=== PATIENT | male | born 1965 | race Caucasian/White ===

== ENCOUNTER 2023-05-04 22:33 | Inpatient (IN) | payer BC ==
[~2023-05-04] VITALS: Ht 172.7 cm; Wt 74.8 kg
[2023-05-05 01:39] VITALS: BP 123/74; PULSE 72; RESP 18; TEMP 99.7
[2023-05-05 04:00] VITALS: BP 101/59; PULSE 63; RESP 18; TEMP 96.4
[2023-05-05 08:00] VITALS: BP 101/60; PULSE 72; RESP 20; TEMP 97.5
[2023-05-05] MEDS ORDERED: LORAZEPAM 2MG/ML CPJ IV NR (10:30)
[2023-05-05] MEDS ORDERED: ONDANSETRON HCL 4MG/2ML INJ IV PRN (10:45)
[2023-05-05] MEDS ORDERED: ACETAMINOPHEN 325MG TABLET PO PRN ×2 (10:45)
[2023-05-05] MEDS ORDERED: DEXTROSE 50% WATER 50ML SYRINGE IV PRN (10:45)
[2023-05-05] MEDS ORDERED: DOCUSATE SODIUM 100MG CAPSULE PO PRN (10:45)
[2023-05-05] MEDS ORDERED: IPRATROPIUM/ALBUTEROL 0.5-3(2.5)MG/3ML NEB HHN PRN (10:45)
[2023-05-05 12:00] VITALS: BP 115/67; PULSE 70; RESP 20; TEMP 96.8
[2023-05-05] MEDS: BLOOD SUGAR DIAGNOSTIC STRIP TEST SCH ×3 (12:20→20:11)
[2023-05-05] MEDS: PREDNISONE 20MG TABLET PO SCH (12:25)
[2023-05-05 12:44] LABS: BASOPHILS % 0.5 % (0.0-2.0); CHLORIDE 106 mEq/L (98-107); EOSINOPHILS % 0.3 % (0.0-5.0); HEMATOCRIT. 44.5 % (42.0-52.0); INDEX HEMOLYSI 1 (1-3); INDEX HEMOLYSI 2 (1-3); INDEX ICTERIC 1 (1-4); INDEX LIPEMIC 1 (1-3); LYMPHOCYTES % 14.9 % (20.0-50.0); MEAN CORPUSCULAR HEMOGLOBIN 29.2 pg (28.0-32.0); MEAN CORPUSCULAR HGB CONC 33.7 g/dL (31.0-37.0); MEAN CORPUSCULAR VOLUME 86.7 fL (80.0-94.0); MONOCYTES % 7.3 % (2.0-8.0); RED BLOOD CELL COUNT 5.13 mill/uL (4.7-6.1); RED CELL DISTRIBUTION WIDTH 13.5 % (11.6-14.6); SODIUM 138 mEq/L (136-145); WHITE BLOOD COUNT 15.1 x1000/uL (4.5-11.0)
[2023-05-05] MEDS: LEVOTHYROXINE SODIUM 50MCG TABLET PO SCH (12:45)
[2023-05-05 12:48] LABS: D-DIMER 3.08 mg/L FEU (<0.50); INR 1.1; PROTHROMBIN TIME 11.9 sec (9.6-11.0)
[2023-05-05 12:51] LABS: ALANINE AMINOTRANSFERASE 126 IU/L (13-61); ALBUMIN 3.1 g/dL (3.4-5.0); ASPARTATE AMINOTRANSFERASE 32 IU/L (15-37); BILIRUBIN TOTAL 0.7 mg/dL (0.1-1.0); CALCIUM 9.1 mg/dL (8.5-10.1); CARBON DIOXIDE 29 mEq/L (21-32); CREATINE KINASE 34 IU/L (39-308); CREATINE KINASE MB FRACTION < 1.0 ng/mL (0.5-3.6); CREATININE 0.7 mg/dL (0.6-1.3); GLUCOSE 93 mg/dL (70-105); PROTEIN TOTAL 7.8 g/dL (6.0-8.3); UREA NITROGEN BLOOD 26 mg/dL (7-21)
[2023-05-05 12:58] LABS: DIFFERENTIAL COMMENT 1
[2023-05-05 13:07] LABS: TROPONIN I HIGH SENSITIVITY < 4 ng/L (<78)
[2023-05-05 13:23] LABS: FOLIC ACID (FOLATE) SERUM 4.9 ng/mL (>5.38)
[2023-05-05 13:51] LABS: PLATELET 532 x1000/uL (130-400)
[2023-05-05] MEDS ORDERED: GADOTERATE MEGLUMINE 5 MMOL/10 ML VIAL IV ONE (15:36)
[2023-05-05 15:58] LABS: INDEX HEMOLYSI 2 (1-3); INDEX ICTERIC 1 (1-4); INDEX LIPEMIC 1 (1-3)
[2023-05-05 16:07] LABS: IRON 63 ug/dL (50-175); NT PRO B-TYPE NATRIURETIC PEP 138 pg/mL (5-125); TOTAL IRON BINDING CAPACITY 338 ug/dL (250-450)
[2023-05-05 16:27] LABS: CLARITY URINE CLEAR (CLEAR); COLOR URINE YELLOW (YELLOW); GLUCOSE URINE NEGATIVE (NEGATIVE); KETONES URINE NEGATIVE (NEGATIVE); LEUKOCYTE ESTERASE URINE NEGATIVE (NEGATIVE); NITRITE URINE NEGATIVE (NEGATIVE); OCCULT BLOOD URINE NEGATIVE (NEGATIVE); PROTEIN URINE TRACE (NEGATIVE); SPECIFIC GRAVITY URINE 1.017 (1.005-1.030)
[2023-05-05 16:58] LABS: *AMPHETAMINES SCREEN URINE NEGATIVE (NEGATIVE); *BARBITURATES SCREEN URINE NEGATIVE (NEGATIVE); *BENZODIAZEPINES SCREEN URINE NEGATIVE (NEGATIVE); *COCAINE SCREEN URINE NEGATIVE (NEGATIVE); CANNABINOID URINE SCREEN NEGATIVE (NEGATIVE); ECSTASY MDMA SCREEN URINE NEGATIVE (NEGATIVE); METHADONE URINE SCREEN NEGATIVE (NEGATIVE); OPIATES URINE SCREEN NEGATIVE (NEGATIVE); PHENCYCLIDINE URINE SCREEN NEGATIVE (NEGATIVE)
[2023-05-05 17:37] LABS: BACTERIA URINE TRACE; RBC URINE NONE SEEN /hpf (0-2); SQUAMOUS EPITHELIAL CELL URINE FEW /lpf (RARE/1+); WBC URINE 0-2 /hpf (0-2)
[2023-05-05] MEDS: SODIUM CHLORIDE 0.9% 1,000 ML IV SCH (17:37)
[2023-05-05] MEDS ORDERED: VANCOMYCIN 1500MG in DEXTROSE 5% WATER 250ML IV NR (19:00)
[2023-05-05] MEDS: CEFEPIME 1,000 MG in DEXTROSE 5% WATER 50 ML IV SCH (19:50)
[2023-05-05 20:00] VITALS: BP 104/65; PULSE 79; RESP 20; TEMP 96.5
[2023-05-05] MEDS: FAMOTIDINE 20MG TABLET PO SCH (20:36)
[2023-05-05] MEDS ORDERED: CEFEPIME HCL 1000MG/VIAL INJ IM SCH (21:00)
[2023-05-05 23:59] LABS: INDEX HEMOLYSI 1 (1-3)
[2023-05-06] VITALS (37 sets, daily range): BP systolic 98–135; BP diastolic 65–94; PULSE 65–88; RESP 10–20; TEMP 96.4–98.8
[2023-05-06 00:07] LABS: CREATINE KINASE 28 IU/L (39-308); CREATINE KINASE MB FRACTION < 1.0 ng/mL (0.5-3.6)
[2023-05-06 00:10] LABS: TROPONIN I HIGH SENSITIVITY < 4 ng/L (<78)
[2023-05-06] MEDS: SODIUM CHLORIDE 0.9% 1,000 ML IV SCH (04:10)
[2023-05-06] MEDS ORDERED: VANCOMYCIN 1G PREMIX 200 ML IV SCH (06:00)
[2023-05-06] MEDS ORDERED: GENTAMICIN SULF 40MG/ML 2ML VIAL ONE (06:21)
[2023-05-06] MEDS ORDERED: LIDOCAINE HCL 1%/EPI 1:200,000 30 ML VIAL ONE (06:21)
[2023-05-06] MEDS ORDERED: THROMBIN (BOVINE) 5000 UNITS/VIAL TOP ONE (06:22)
[2023-05-06] MEDS: LEVOTHYROXINE SODIUM 50MCG TABLET PO SCH (07:20)
[2023-05-06] MEDS ORDERED: HYDROMORPHONE HCL/PF 2MG/ML CPJ ONE (07:28)
[2023-05-06] MEDS ORDERED: PROPOFOL 200MG/20ML VIAL IV ONE (07:29)
[2023-05-06] MEDS ORDERED: ROCURONIUM BROMIDE 10MG/ML VIAL 5ML IV ONE ×3 (07:29→09:02)
[2023-05-06] MEDS: CEFEPIME 1,000 MG in DEXTROSE 5% WATER 50 ML IV SCH ×2 (08:00→21:28)
[2023-05-06] MEDS ORDERED: GLYCOPYRROLATE 0.2 MG/ML 2ML VIAL ONE ×3 (08:06→10:22)
[2023-05-06 08:09] LABS: HEMATOCRIT 40.1 % (42.0-52.0); HEMOGLOBIN 13.8 g/dL (14.0-18.0); MEAN CORPUSCULAR HEMOGLOBIN 29.4 pg (28.0-32.0); MEAN CORPUSCULAR HGB CONC 34.4 g/dL (31.0-37.0); MEAN CORPUSCULAR VOLUME 85.6 fL (80.0-94.0); PLATELET 507 x1000/uL (130-400); RED BLOOD CELL COUNT 4.69 mill/uL (4.7-6.1); RED CELL DISTRIBUTION WIDTH 13.2 % (11.6-14.6); WHITE BLOOD COUNT 12.3 x1000/uL (4.5-11.0)
[2023-05-06] MEDS: FAMOTIDINE 20MG TABLET PO SCH ×2 (09:00→21:28)
[2023-05-06] MEDS ORDERED: NEOSTIGMINE METHYLSULFATE 1MG/ML 10 ML VIAL ONE (10:22)
[2023-05-06] MEDS ORDERED: NICARDIPINE 100 MG in SODIUM CHLORIDE 0.9% 60 ML IV PRN (11:00)
[2023-05-06] MEDS ORDERED: NALOXONE HCL 0.4MG/ML VIAL IV PRN (11:45)
[2023-05-06 12:01] LABS: CHLORIDE 106 mEq/L (98-107); INDEX HEMOLYSI 1 (1-3); INDEX ICTERIC 1 (1-4); INDEX LIPEMIC 1 (1-3); POTASSIUM 4.1 mEq/L (3.5-5.1); SODIUM 137 mEq/L (136-145)
[2023-05-06 12:07] LABS: ALANINE AMINOTRANSFERASE 87 IU/L (13-61); ALBUMIN 2.8 g/dL (3.4-5.0); ASPARTATE AMINOTRANSFERASE 20 IU/L (15-37); BILIRUBIN TOTAL 0.6 mg/dL (0.1-1.0); CALCIUM 8.4 mg/dL (8.5-10.1); CARBON DIOXIDE 26 mEq/L (21-32); CREATININE 0.8 mg/dL (0.6-1.3); GLUCOSE 91 mg/dL (70-105); PHOSPHORUS 3.2 mg/dL (2.5-4.9); PROTEIN TOTAL 7.3 g/dL (6.0-8.3); UREA NITROGEN BLOOD 23 mg/dL (7-21)
[2023-05-06] MEDS: BLOOD SUGAR DIAGNOSTIC STRIP TEST SCH ×3 (12:18→21:29)
[2023-05-06] MEDS: DEXT 5%/LACTATED RINGERS 1,000 ML IV SCH ×2 (12:29→21:29)
[2023-05-06] MEDS: DEXAMETHASONE 4MG/ML 1ML VIAL IV SCH ×3 (12:48→23:58)
[2023-05-06] MEDS: VANCOMYCIN 750MG PREMIX 150 ML IV SCH ×2 (16:00→23:58)
[2023-05-06] MEDS: MORPHINE SULFATE 4 MG/ML CPJ (NOT FOR IM USE) IV PRN ×2 (17:59→23:58)
[2023-05-06] MEDS ORDERED: HYDR-459 MT (18:24)
[2023-05-06] MEDS ORDERED: CITA40TA69 MT (18:24)
[2023-05-06] MEDS ORDERED: LEVO50TA8 PO (18:24)
[2023-05-06] MEDS ORDERED: HYDR-4001 MT (18:24)
[2023-05-06] MEDS ORDERED: METH-774 MT (18:24)
[2023-05-06] MEDS ORDERED: LORA-250 MT (18:24)
[2023-05-06] MEDS ORDERED: IBUP-2028 MT (18:24)
[2023-05-06] MEDS ORDERED: CITALOPRAM HYDROBROMIDE 10MG TABLET PO SCH (20:00)
[2023-05-07] VITALS (41 sets, daily range): BP systolic 109–131; BP diastolic 69–97; PULSE 59–87; RESP 9–22; TEMP 98.1–98.8
[2023-05-07 04:43] LABS: HEMATOCRIT 41.9 % (42.0-52.0); HEMOGLOBIN 13.9 g/dL (14.0-18.0); MEAN CORPUSCULAR HEMOGLOBIN 29.1 pg (28.0-32.0); MEAN CORPUSCULAR HGB CONC 33.1 g/dL (31.0-37.0); MEAN CORPUSCULAR VOLUME 87.8 fL (80.0-94.0); PLATELET 530 x1000/uL (130-400); RED BLOOD CELL COUNT 4.78 mill/uL (4.7-6.1); RED CELL DISTRIBUTION WIDTH 13.5 % (11.6-14.6); WHITE BLOOD COUNT 20.1 x1000/uL (4.5-11.0)
[2023-05-07 05:17] LABS: CHLORIDE 102 mEq/L (98-107); INDEX HEMOLYSI 2 (1-3); INDEX ICTERIC 1 (1-4); INDEX LIPEMIC 1 (1-3); POTASSIUM 4.5 mEq/L (3.5-5.1); SODIUM 135 mEq/L (136-145)
[2023-05-07 05:28] LABS: ALANINE AMINOTRANSFERASE 63 IU/L (13-61); ALBUMIN 2.8 g/dL (3.4-5.0); ASPARTATE AMINOTRANSFERASE 20 IU/L (15-37); BILIRUBIN TOTAL 0.9 mg/dL (0.1-1.0); CALCIUM 8.9 mg/dL (8.5-10.1); CARBON DIOXIDE 23 mEq/L (21-32); CREATININE 0.7 mg/dL (0.6-1.3); GLUCOSE 288 mg/dL (70-105); PHOSPHORUS 3.8 mg/dL (2.5-4.9); PROTEIN TOTAL 7.1 g/dL (6.0-8.3); UREA NITROGEN BLOOD 19 mg/dL (7-21)
[2023-05-07] MEDS ORDERED: LEVOTHYROXINE SODIUM 50MCG TABLET PO SCH (06:30)
[2023-05-07] MEDS: BLOOD SUGAR DIAGNOSTIC STRIP TEST SCH ×3 (06:38→21:00)
[2023-05-07] MEDS: LEVOTHYROXINE SODIUM 50MCG TABLET PO SCH (06:41)
[2023-05-07] MEDS: DEXAMETHASONE 4MG/ML 1ML VIAL IV SCH ×3 (06:41→18:14)
[2023-05-07] MEDS: MORPHINE SULFATE 4 MG/ML CPJ (NOT FOR IM USE) IV PRN ×3 (06:41→17:03)
[2023-05-07] MEDS: DEXT 5%/LACTATED RINGERS 1,000 ML IV SCH ×2 (07:00→22:44)
[2023-05-07] MEDS: VANCOMYCIN 750MG PREMIX 150 ML IV SCH (08:00)
[2023-05-07] MEDS: FAMOTIDINE 20MG TABLET PO SCH ×2 (09:06→21:10)
[2023-05-07] MEDS: CEFEPIME 1,000 MG in DEXTROSE 5% WATER 50 ML IV SCH (09:06)
[2023-05-07] MEDS ORDERED: BISACODYL 5MG TABLET PO PRN (12:45)
[2023-05-07] MEDS: CITALOPRAM HYDROBROMIDE 10MG TABLET PO SCH (19:54)
[2023-05-07] MEDS: CEFEPIME 2,000 MG in DEXT 5% WATER 100 ML IV SCH (21:09)
[2023-05-07] MEDS: VANCOMYCIN 1G PREMIX 200 ML IV SCH (22:44)
[2023-05-08] VITALS: BP 124/43; PULSE 86; RESP 18; TEMP 99.1
[2023-05-08] MEDS: MORPHINE SULFATE 4 MG/ML CPJ (NOT FOR IM USE) IV PRN ×3 (00:18→22:30)
[2023-05-08] MEDS: LEVOTHYROXINE SODIUM 50MCG TABLET PO SCH (06:39)
[2023-05-08] MEDS: BLOOD SUGAR DIAGNOSTIC STRIP TEST SCH ×4 (07:20→21:00)
[2023-05-08 08:00] VITALS: BP 130/83; PULSE 62; RESP 17; TEMP 97.6
[2023-05-08] MEDS: FAMOTIDINE 20MG TABLET PO SCH ×2 (09:00→21:05)
[2023-05-08] MEDS: PREDNISONE 20MG TABLET PO SCH (09:00)
[2023-05-08 09:11] LABS: BASOPHILS % 0.4 % (0.0-2.0); EOSINOPHILS % 0.2 % (0.0-5.0); HEMATOCRIT. 40.6 % (42.0-52.0); HEMOGLOBIN. 13.7 g/dL (14.0-18.0); LYMPHOCYTES % 10.3 % (20.0-50.0); MEAN CORPUSCULAR HEMOGLOBIN 29.2 pg (28.0-32.0); MEAN CORPUSCULAR HGB CONC 33.7 g/dL (31.0-37.0); MEAN CORPUSCULAR VOLUME 86.7 fL (80.0-94.0); MONOCYTES % 7.7 % (2.0-8.0); NEUTROPHILS % 81.4 % (40.0-76.0); PLATELET 505 x1000/uL (130-400); RED BLOOD CELL COUNT 4.68 mill/uL (4.7-6.1); RED CELL DISTRIBUTION WIDTH 13.3 % (11.6-14.6); WHITE BLOOD COUNT 14.9 x1000/uL (4.5-11.0)
[2023-05-08] MEDS: CEFEPIME 2,000 MG in DEXT 5% WATER 100 ML IV SCH ×2 (09:12→21:05)
[2023-05-08 09:30] LABS: CHLORIDE 106 mEq/L (98-107); INDEX HEMOLYSI 1 (1-3); INDEX ICTERIC 1 (1-4); INDEX LIPEMIC 1 (1-3); POTASSIUM 3.8 mEq/L (3.5-5.1); SODIUM 136 mEq/L (136-145)
[2023-05-08 09:37] LABS: ALANINE AMINOTRANSFERASE 131 IU/L (13-61); ALBUMIN 2.6 g/dL (3.4-5.0); ASPARTATE AMINOTRANSFERASE 42 IU/L (15-37); BILIRUBIN TOTAL 0.6 mg/dL (0.1-1.0); CALCIUM 8.3 mg/dL (8.5-10.1); CARBON DIOXIDE 29 mEq/L (21-32); CREATININE 0.7 mg/dL (0.6-1.3); GLUCOSE 120 mg/dL (70-105); PROTEIN TOTAL 6.6 g/dL (6.0-8.3); UREA NITROGEN BLOOD 21 mg/dL (7-21)
[2023-05-08] MEDS ORDERED: GADOTERATE MEGLUMINE 5 MMOL/10 ML VIAL IV ONE (10:13)
[2023-05-08 12:00] VITALS: BP 118/75; PULSE 66; RESP 18; TEMP 97.5
[2023-05-08] MEDS ORDERED: LIDOCAINE HCL 1% 10 MG/ML 10ML VIAL ONE (12:44)
[2023-05-08] MEDS: VANCOMYCIN 1G PREMIX 200 ML IV SCH ×2 (14:44→21:00)
[2023-05-08] MEDS: DEXT 5%/LACTATED RINGERS 1,000 ML IV SCH ×2 (14:47→22:03)
[2023-05-08 16:00] VITALS: BP 111/71; PULSE 71; RESP 19; TEMP 97.2
[2023-05-08] MEDS: DIPHENHYDRAMINE 25MG CAPSULE PO PRN (16:14)
[2023-05-08 20:00] VITALS: BP 100/59; PULSE 77; RESP 18; TEMP 98.5
[2023-05-08] MEDS: CITALOPRAM HYDROBROMIDE 10MG TABLET PO SCH (21:05)
[2023-05-09] MEDS: MORPHINE SULFATE 4 MG/ML CPJ (NOT FOR IM USE) IV PRN ×4 (02:48→18:35)
[2023-05-09 04:00] VITALS: BP 118/77; PULSE 72; RESP 18; TEMP 98.7
[2023-05-09] MEDS: BLOOD SUGAR DIAGNOSTIC STRIP TEST SCH ×3 (06:41→21:00)
[2023-05-09] MEDS: LEVOTHYROXINE SODIUM 50MCG TABLET PO SCH (06:43)
[2023-05-09 08:00] VITALS: BP 113/65; PULSE 19; RESP 19; TEMP 97.9
[2023-05-09 08:42] LABS: BASOPHILS % 0.2 % (0.0-2.0); EOSINOPHILS % 1.5 % (0.0-5.0); HEMATOCRIT. 38.8 % (42.0-52.0); HEMOGLOBIN. 13.1 g/dL (14.0-18.0); LYMPHOCYTES % 24.7 % (20.0-50.0); MEAN CORPUSCULAR HEMOGLOBIN 29.1 pg (28.0-32.0); MEAN CORPUSCULAR HGB CONC 33.9 g/dL (31.0-37.0); MEAN CORPUSCULAR VOLUME 85.9 fL (80.0-94.0); MEAN PLATELET VOLUME 6.5 fl (7.4-10.4); MONOCYTES % 11.7 % (2.0-8.0); NEUTROPHILS % 61.9 % (40.0-76.0); PLATELET 468 x1000/uL (130-400); RED BLOOD CELL COUNT 4.52 mill/uL (4.7-6.1); RED CELL DISTRIBUTION WIDTH 13.4 % (11.6-14.6); WHITE BLOOD COUNT 10.3 x1000/uL (4.5-11.0)
[2023-05-09 09:24] LABS: CHLORIDE 103 mEq/L (98-107); INDEX HEMOLYSI 1 (1-3); INDEX ICTERIC 1 (1-4); INDEX LIPEMIC 1 (1-3); SODIUM 137 mEq/L (136-145)
[2023-05-09 09:31] LABS: CARBON DIOXIDE 30 mEq/L (21-32); CREATININE 0.8 mg/dL (0.6-1.3); GLUCOSE 97 mg/dL (70-105); UREA NITROGEN BLOOD 20 mg/dL (7-21)
[2023-05-09] MEDS: PREDNISONE 20MG TABLET PO SCH (10:13)
[2023-05-09] MEDS: FAMOTIDINE 20MG TABLET PO SCH ×2 (10:13→21:00)
[2023-05-09 12:00] VITALS: BP 96/61; PULSE 75; RESP 18; TEMP 97.7
[2023-05-09 16:00] VITALS: BP 115/67; PULSE 72; RESP 17; TEMP 97.5
[2023-05-09] MEDS: CEFAZOLIN 2,000 MG in DEXT 5% WATER 100 ML IV SCH (18:36)
[2023-05-09 20:00] VITALS: BP 106/63; PULSE 80; TEMP 97.6
[2023-05-09] MEDS: CITALOPRAM HYDROBROMIDE 10MG TABLET PO SCH (20:00)
[2023-05-09] MEDS ORDERED: VANCOMYCIN 1G PREMIX 200 ML IV SCH (21:00)
[2023-05-09] MEDS ORDERED: CEFEPIME 2,000 MG in DEXT 5% WATER 100 ML IV SCH (21:00)
[2023-05-10] VITALS: BP 127/69; PULSE 74; RESP 17; TEMP 98.9
[2023-05-10] MEDS: CEFAZOLIN 2,000 MG in DEXT 5% WATER 100 ML IV SCH ×2 (02:00→10:33)
[2023-05-10 04:00] VITALS: BP 115/74; PULSE 83; RESP 19; TEMP 97.5
[2023-05-10] MEDS: LEVOTHYROXINE SODIUM 50MCG TABLET PO SCH (06:44)
[2023-05-10] MEDS: MORPHINE SULFATE 4 MG/ML CPJ (NOT FOR IM USE) IV PRN (06:44)
[2023-05-10] MEDS: BLOOD SUGAR DIAGNOSTIC STRIP TEST SCH ×3 (06:50→12:41)
[2023-05-10] MEDS ORDERED: DEXTROSE 50% WATER 50ML SYRINGE IV PRN (07:30)
[2023-05-10] MEDS ORDERED: INSULIN LISPRO 100 UNITS/ML SUBCUT SCH (07:50)
[2023-05-10 07:57] LABS: BASOPHILS % 0.1 % (0.0-2.0); EOSINOPHILS % 1.4 % (0.0-5.0); HEMATOCRIT. 37.5 % (42.0-52.0); HEMOGLOBIN. 12.7 g/dL (14.0-18.0); LYMPHOCYTES % 16.2 % (20.0-50.0); MEAN CORPUSCULAR HEMOGLOBIN 29.4 pg (28.0-32.0); MEAN CORPUSCULAR VOLUME 86.4 fL (80.0-94.0); MEAN PLATELET VOLUME 6.7 fl (7.4-10.4); MONOCYTES % 8.8 % (2.0-8.0); NEUTROPHILS % 73.5 % (40.0-76.0); PLATELET 465 x1000/uL (130-400); RED BLOOD CELL COUNT 4.34 mill/uL (4.7-6.1); RED CELL DISTRIBUTION WIDTH 13.3 % (11.6-14.6)
[2023-05-10 08:00] VITALS: BP 124/79; PULSE 67; RESP 18; TEMP 96.6
[2023-05-10] MEDS: FAMOTIDINE 20MG TABLET PO SCH (08:39)
[2023-05-10] MEDS: PREDNISONE 20MG TABLET PO SCH (08:39)
[2023-05-10 08:49] LABS: CHLORIDE 103 mEq/L (98-107); INDEX HEMOLYSI 1 (1-3); INDEX ICTERIC 1 (1-4); INDEX LIPEMIC 1 (1-3); SODIUM 135 mEq/L (136-145)
[2023-05-10 08:51] LABS: CALCIUM 8.8 mg/dL (8.5-10.1); CARBON DIOXIDE 29 mEq/L (21-32)
[2023-05-10 08:55] LABS: CREATININE 0.7 mg/dL (0.6-1.3); GLUCOSE 101 mg/dL (70-105); UREA NITROGEN BLOOD 20 mg/dL (7-21)
[2023-05-10 12:00] VITALS: BP 122/75; PULSE 78; RESP 19; TEMP 98.1
[2023-05-10] MEDS: DIPHENHYDRAMINE 25MG CAPSULE PO PRN (12:42)
[2023-05-10] MEDS ORDERED: LACTULOSE 20G/30ML UDC PO SCH (13:01)
[2023-05-10 15:00] VITALS: BP 122/75; PULSE 78; TEMP 98.1; O2SAT 98
== END 2023-05-10 16:08 | disposition home or self-care (01) | DRG 853 ==
LOC: 6EST 22:33 → INTOOBSV 22:33 → OBSVTOIN 22:33 → MICUSO 05-06 14:47 → 6EST 05-07 14:41
PROVIDERS: ADMIT Internal Medicine; ATTEND Internal Medicine
PROC: 009U0ZZ Drainage of Spinal Canal, Open Approach (ICD-10-PCS; principal; 2023-05-06)
PROC: 0RG10AJ Fusion of Cervical Vertebral Joint with Interbody Fusion Device, Posterior Approach, Anterior Column, Open Approach (ICD-10-PCS; 2023-05-06)
PROC: 0RG1071 Fusion of Cervical Vertebral Joint with Autologous Tissue Substitute, Posterior Approach, Posterior Column, Open Approach (ICD-10-PCS; 2023-05-06)
PROC: 00NW0ZZ Release Cervical Spinal Cord, Open Approach (ICD-10-PCS; 2023-05-06)
PROC: 0RB30ZZ Excision of Cervical Vertebral Disc, Open Approach (ICD-10-PCS; 2023-05-06)
PROC: 02HV33Z Insertion of Infusion Device into Superior Vena Cava, Percutaneous Approach (ICD-10-PCS; 2023-05-08)
PROC: B548ZZA Ultrasonography of Superior Vena Cava, Guidance (ICD-10-PCS; 2023-05-08)
DX: A41.01 Sepsis due to Methicillin susceptible Staphylococcus aureus (principal); G06.1 Intraspinal abscess and granuloma; G82.50 Quadriplegia, unspecified; M46.22 Osteomyelitis of vertebra, cervical region; E44.1 Mild protein-calorie malnutrition; J39.0 Retropharyngeal and parapharyngeal abscess; M46.42 Discitis, unspecified, cervical region; E03.9 Hypothyroidism, unspecified; L50.9 Urticaria, unspecified; C61 Malignant neoplasm of prostate; D64.9 Anemia, unspecified; D75.839 Thrombocytosis, unspecified; F40.240 Claustrophobia; F41.1 Generalized anxiety disorder; G47.33 Obstructive sleep apnea (adult) (pediatric); M25.78 Osteophyte, vertebrae; Z68.25 Body mass index [BMI] 25.0-25.9, adult; M48.02 Spinal stenosis, cervical region; R73.03 Prediabetes; Z80.0 Family history of malignant neoplasm of digestive organs; Z80.3 Family history of malignant neoplasm of breast; Z80.42 Family history of malignant neoplasm of prostate; Z85.46 Personal history of malignant neoplasm of prostate; Z86.61 Personal history of infections of the central nervous system; Z88.1 Allergy status to other antibiotic agents; Z98.1 Arthrodesis status
CPT/HCPCS: 36415; 36573; 71045; 72040; 72156; 76000; 80048; 80053; 80202; 80305; 81003; 82550; 82553; 82607; 82728; 82746; 82962; 83036; 83540; 83550; 83605; 83735; 83880; 84100; 84145; 84484; 85025; 85027; 85379; 85651; 86850; 86900; 87070; 87075; 87077; 87186; 88304; 88311; 93005; 93306; 93970; 97116; 97162; 97166; A9577; C1725; C1893; J0690; J0692; J1100; J1170; J1580; J2060; J2270; J2704; J2710; J3370; J3490; J7030; J7050; J7060; J7121; J7512; L0172; Q0163; C1713; C1889